=== PATIENT | female | born 1985 | race Caucasian/White ===

== ENCOUNTER 2023-06-07 04:54 | Inpatient (IN) | payer MEDICAID, SELFPAY ==
[2023-06-07] VITALS (83 sets, daily range): BP systolic 110–205; BP diastolic 76–134; PULSE 80–138; RESP 0–45; TEMP 36.3–37.1; O2SAT 90–98
--- NOTE | 2023-06-07 | DI.US_ITS ---
Exam(s) US ABDOMEN EXAM: US ABDOMEN CLINICAL HISTORY: Transaminitis, pancreatitis TECHNIQUE: Ultrasound abdomen performed using standard protocol. COMPARISON: CT CT ABDOMEN PELVIS W from 06/07/2023 FINDINGS: LIVER: Marked attic steatosis. Posterior portions of the liver are not able to be visualized. Enlar ged at 19 cm in length. Coarsened echotexture. No focal liver lesions are seen. GALLBLADDER: No evidence of cholelithiasis. No evidence of wall thickening. No pericholecystic fluid identified. WILSON'S SIGN: Negative. BILIARY SYSTEM: No intrahepatic or extrahepatic biliary ductal dilation. KIDNEYS: Kidneys are symmetric in size. No evidence of renal calculi. No evidence of hydronephrosis. No renal mass or cyst identified. PANCREAS: Normal not well visualized due to bowel gas. SPLEEN: Not enlarged. ABDOMINAL AORTA AND IVC: Visualized portions normal caliber. ASCITES: None seen. IMPRESSION: Enlarged fatty liver. No evidence of cholelithiasis. DATA REPOSITORY:
--- NOTE | 2023-06-07 05:00 | DI.CT_ITS ---
Exam(s) CT ABDOMEN PELVIS W EXAM: CT ABDOMEN PELVIS W CLINICAL HISTORY: pancreatitis. TECHNIQUE: Imaging Protocol: Axial computed tomography images with coronal and sagittal reformatted images were created and reviewed CONTRAST MATERIAL: Intravenous: Omnipaque 350 Contrast volume:100 ml Oral: no COMPARISON: No exams were available for comparison FINDINGS: ABDOMEN and PELVIS: Lung Bases: No acute findings. Liver: Enlarged. Severe hepatic steatosis. No measurable mass. Gallbladder and biliary tract: No radiodense calculus or dilation. Pancreas: Inflammation around the head of the pancreas consistent with pancreatitis. And body and ta il appear normal. No evidence of mass. No pseudocyst. Spleen: Normal. Kidneys: Normal size, contour and axis. No radiodense stones. No obstructive uropathy. No suspicious masses seen. Adrenal glands: No masses seen. Vasculature: Abdominal aorta non-dilated. Soft tissues: Unremarkable. Bladder: No gross wall thickening. No calculi.No focal mass. Bowel: Wall thickening of the descending duodenum adjacent to the head of the pancreas. No obstructi on. Appendix normal. Peritoneal cavity: No ascites. No focal collection or mesenteric inflammatory response. Bones: Unremarkable for age. Congenital fusion between L1 and L2. Reproductive organs: Within normal limits. Lymph nodes: Unremarkable. IMPRESSION:: Findings consistent with acute pancreatitis involving the head of the pancreas with sec ondary inflammation of the adjacent duodenum. Severe hepatic steatosis. RADIATION DOSE DELIVERED: Total DLP DATA REPOSITORY: All CT scans at this facility are submitted to the National Radiology Data Registry (NRDR) Dose Index Registry (DIR) with the [employer] (ACR). RADIATION OPTIMIZATION: All CT scans at this facility use at least one of these dose optimization te chniques: automated exposure control; mA and/or kV adjustment per patient size (includes targeted exa ms where dose is matched to clinical indication); or iterative reconstruction.
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
[2023-06-07] MEDS: diazePAM 10 MG/2 ML SYR 5 MG IVP (05:11)
[2023-06-07] MEDS: Ondansetron 4 MG/2 ML VIAL IVP (05:14)
[2023-06-07] MEDS: Normal Saline 1,000 ML 1000 ML IV ×2 (05:23→06:50)
[2023-06-07 05:24] LABS: Abs Immature Grans 0.06 10^3/uL (0.0-0.06); Absolute Basophil Count 0.06 10^3/uL (0.0-0.2); Absolute Eosinophil Count 0.01 10^3/uL (0.0-0.7); Absolute Lymphocyte Count 1.47 10^3/uL (1.2-3.4); Absolute Monocyte Count 0.61 10^3/uL (0.1-0.8); Absolute Neutrophil Count 8.47 10^3/uL (1.2-6.7); Basophils % 0.6; Eosinophils % 0.1; HCT 43.4 % (36.0-46.0); HGB 14.8 g/dL (11.2-15.7); Immature Grans % 0.6; Lymphocytes % 13.8; MCH 32.2 pg (27.0-33.0); MCHC 34.1 % (32.0-36.0); MCV 94 fL (80-95); MPV 10.3 fL (8.0-11.0); Monocytes % 5.7; Neutrophils % 79.2; Platelet Count 158 10^3/uL (130-400); RDW 13.2 % (11.7-14.6); WBC 10.68 10^3/uL (4.4-10.8)
[2023-06-07 05:38] LABS: Lipase 167 U/L (16-77)
[2023-06-07] MEDS: Ketorolac 15 MG/ML VIAL 10 MG IVP (05:38)
[2023-06-07 05:41] LABS: Bilirubin Moderate (Negative); Blood Large (Negative); Clarity Cloudy (Clear); Glucose Negative (Negative); Ketones >=160 mg/dL (Negative); Leukocyte Esterase Negative (Negative); Nitrite Negative (Negative); Specific Gravity >= 1.030 (1.005-1.025); Urobilinogen 0.2 mg/dL (Up to 0.2)
[2023-06-07 05:41] LABS: ALT 100 U/L (14-59); AST 143 U/L (15-37); Albumin 4.5 g/dL (3.4-5.0); Alkaline Phosphatase 140 U/L (46-116); Anion Gap 27.6 mmol/L (3-11); BUN 10 mg/dL (7-18); Bilirubin, Total 1.1 mg/dL (0.2-1.0); CO2 12.4 mmol/L (21.0-32.0); CREATININE 1.2 mg/dL (0.55-1.02); Calcium 9.8 mg/dL (8.5-10.1); Chloride 92 mmol/L (98-107); Estimated GFR 60.16 (mL/min/1.73m2); Glucose 190 mg/dL (74-106); Magnesium 2.1 mg/dL (1.8-2.4); Potassium 3.3 mmol/L (3.5-5.1); Sodium 132 mmol/L (136-145); Total Protein 10.1 g/dL (6.4-8.2)
[2023-06-07] MEDS: Omnipaque 350 MG/ML 100 ML BTL IJ (05:42)
[2023-06-07] MEDS: Normal Saline - Diluent 50 ML VIAL IJ (05:43)
[2023-06-07] MEDS: Normal Saline Flush 10 ML SYR IVP ×2 (05:43→11:05)
[2023-06-07 05:50] LABS: Bacteria Many HPF (Negative); C & S Indicated? No/Sq. Contamination; Crystals Negative HPF (Negative); Epithelial Cells Many HPF (Negative); Mucus Negative (Negative)
[2023-06-07] MEDS: Droperidol 5 MG/2 ML VIAL IVP (06:08)
[2023-06-07] MEDS: POTASSIUM CHLORIDE/D5-0.9%NACL 1,000 ML 100 MEQ IV (06:26)
--- NOTE | 2023-06-07 07:03 | DI.VRAD_ITS ---
PROCEDURE INFORMATION: Exam: CT Abdomen And Pelvis With Contrast Exam date and time: 06/07/2023 5:53 AM Age: 37 years old Clinical indication: Abdominal pain; Localized; Upper; Patient HX: Abd pain, vomiting, pancreatitis TECHNIQUE: Imaging protocol: Computed tomography of the abdomen and pelvis with contrast. Radiation optimization: All CT scans at this facility use at least one of these dose optimization techniques: automated exposure control; mA and/or kV adjustment per patient size (includes targeted exams where dose is matched to clinical indication); or iterative reconstruction. Contrast material: OMNIPAQUE 350; Contrast volume: 100 ml; Contrast route: INTRAVENOUS (IV); COMPARISON: No relevant prior studies available. FINDINGS: Liver: Severe diffuse hepatic steatosis is present. Gallbladder and bile ducts: No gallbladder wall thickening, radiodense stones, or significant biliary duct dilation. Pancreas: Pancreatic body and tail are grossly unremarkable. There is very mild stranding involving the pancreatic head compatible with groove pancreatitis. No significant pancreatic ductal dilation. There is mild reactive wall thickening of the adjacent duodenal. Spleen: Normal size; no suspicious masses. Adrenal glands: No suspicious adrenal masses. Kidneys and ureters: No hydronephrosis. Stomach and bowel: See Pancreas finding. Appendix: The appendix is normal. Intraperitoneal space: No free intraperitoneal air, significant ascites, or localized fluid collections. Vasculature: Abdominal aorta has normal caliber. Lymph nodes: No enlarged lymph nodes. Urinary bladder: No significant bladder wall thickening. Reproductive: Visualized portions show no obvious acute abnormality. Bones/joints: No acute fracture. Incidental note of fusion across the L1-L2 disc space, possibly congenital. Soft tissues: Unremarkable. IMPRESSION: 1. Acute pancreatitis isolated to pancreatic head. No evidence of pancreatic necrosis or localized fluid collection. 2. Severe hepatic steatosis. Dictated and Authenticated by: Roldan Montes De Oca MD. Ordering:[facility] Rc Hernandez MD
--- NOTE | 2023-06-07 07:37 | ED.PROG_ITS ---
Date of service: 06/07/23 Time of Service: 07:37 Medical Decision Making Discussed patient with the hospitalist for admission. However there are no ICU beds available at this facility and the hospitalist feels the patient requires ICU level care and is requesting that I transfer the patient.. At this time her vitals have improved and she is feeling better. She still has a mild tremor, her vomiting has stopped after the droperidol.. Her CIWA score is 10. Will continue treatment with Valium and IV fluid resuscitation. Will attempt to find placement. Discharge Plan Disposition Patient Disposition: Admit to [facility] Condition: Stable Discharge Details Clinical Impression: Acute pancreatitis, Vomiting, Abdominal pain, Transaminitis, Hyponatremia, Hypokalemia, Alcohol withdrawal ED Provider: Tremayne Tatum Home Meds and New Rx's Prescriptions: No Action lorazepam [Ativan] 1 mg tablet 1 mg PO TID buspirone 10 mg tablet 10 mg PO TID gabapentin 100 mg capsule 100 mg PO DAILY paroxetine HCl [Paxil] 30 mg tablet 60 mg PO HS
[2023-06-07] MEDS: diazePAM 5 MG TAB 10 MG PO (07:38)
--- NOTE | 2023-06-07 07:58 | ED.PROG_ITS ---
Date of service: 06/07/23 Time of Service: 07:58 Medical Decision Making Received signout from night physician Dr. Tatum Patient resting comfortably no acute distress, mild fine tremor, improving vital signs specifically improving hypertension and tachycardia, no longer vomiting. Now tolerating p.o. Was given a dose of p.o. Valium this AM. CIWA score downtrending from initial value around 15 now closer to 10. Given improved hydration, cessation of vomiting, improvement of vital signs, normal mental st atus and declining CIWA patient deemed safe for inpatient admission. Hospitalist uncomfortable admitting to floor, given patient's history of seizure 4 years ago. I have asked hospitalist to come to bedside to evaluate patient as myself and prior physician deemed patient appropriate for admission here. Sign Out Sign Out Data: Sign Out Comment: 37-year-old female with past medical history of alcohol abuse presents for evaluation of vomiting. Patient has pancreatitis and mild alcohol withdrawal. Symptoms are improving with fluids and medication. Final disposition pending admission at this facility versus outside facility. Dr Michel declines admission as there are no ICU beds available. Last updated by Tremayne Tatum MD at 06/07/23 07:41 Discharge Plan Disposition Patient Disposition: Admit to [facility] Condition: Stable Discharge Details Clinical Impression: Acute pancreatitis, Vomiting, Abdominal pain, Transaminitis, Hyponatremia, Hypokalemia, Alcohol withdrawal Primary Care Provider: Ekaterina Beltran ED Provider: Peña Valente Home Meds and New Rx's Prescriptions: No Action lorazepam [Ativan] 1 mg tablet 1 mg PO TID buspirone 10 mg tablet 10 mg PO TID gabapentin 100 mg capsule 100 mg PO DAILY paroxetine HCl [Paxil] 30 mg tablet 60 mg PO HS
[2023-06-07] MEDS: Gabapentin 100 MG CAP PO (09:24)
[2023-06-07] MEDS: busPIRone 5 MG TAB 10 MG PO ×3 (09:24→19:53)
[2023-06-07] MEDS: PHENobarbital 130 MG in Normal Saline 50 ML 100 MG IVPB (09:25)
[2023-06-07] MEDS: POTASSIUM CHLORIDE/0.9% NACL 1,000 ML 200 MEQ IV ×3 (09:54→19:46)
--- NOTE | 2023-06-07 10:02 | W.PCEDHO ---
Registration Status: REG ER Primary Language: Preferred Language: ED Information & Data Chief Complaint Abd Prob 06/07/23 05:01 Triage Note PT states that she has been 06/07/23 04:55 having nausea vomiting and RUQ ABD tenderness Most Recent Vital Signs Temperature 36.3 C L 06/07/23 05:00 Pulse 92 H 06/07/23 06:41 Pulse 93 H 06/07/23 06:50 Respiratory Rate 17 06/07/23 06:50 Respiratory Effort Normal 06/07/23 05:00 Respiratory Pattern Normal 06/07/23 07:39 Blood Pressure 143/84 H 06/07/23 06:41 Blood Pressure Mean 100 06/07/23 06:41 Blood Pressure Position Sitting 06/07/23 05:00 Pulse Oximetry 96 06/07/23 05:00 Oxygen Delivery Method Room Air 06/07/23 05:00 Oxygen Flow Rate 0 06/07/23 04:55 Pain Level 10 06/07/23 05:00 Allergies No Known Allergies Allergy (Unverified 06/07/23 05:29) Active Medications Generic Name Dose Route Start Last Admin Trade Name Freq PRN Reason Stop Dose Admin Iohexol 100 ml 06/07/23 05:45 06/07/23 05:42 Omnipaque 350 Mg/Ml 100 Ml Btl IJ 07/07/23 23:59 100 ml DIRECTED FABY Administration Sodium Chloride 0 ml 06/07/23 04:59 06/07/23 05:43 Normal Saline Flush 10 Ml Syr IVP 10 ml PRN PRN Administration Sodium Chloride 50 ml 06/07/23 05:45 06/07/23 05:43 Normal Saline - Diluent 50 Ml Vial IJ 50 ml .FOR DI USE FABY Administration IV IV Catheter Type [Antecubital] Saline Lock IV Catheter Gauge [Antecubital 18 ] IV Catheter Gauge [Right 20 Antecubital] Diagnostics 06/07/23 06/07/23 Range/Units 05:33 05:10 WBC 10.68 (4.4-10.8) 10^3/uL RBC 4.60 (3.93-5.22) 10^6/uL Hgb 14.8 (11.2-15.7) g/dL Hct 43.4 (36.0-46.0) % MCV 94 (80-95) fL MCH 32.2 (27.0-33.0) pg MCHC 34.1 (32.0-36.0) % RDW 13.2 (11.7-14.6) % Plt Count 158 (130-400) 10^3/uL MPV 10.3 (8.0-11.0) fL Immature Gran % 0.6 Neutrophils % 79.2 Lymphocytes % 13.8 Monocytes % 5.7 Eosinophils % 0.1 Basophils % 0.6 Nucleated RBC % 0.0 (0.0-0.3) % Absolute Neutrophils 8.47 H (1.2-6.7) 10^3/uL Absolute Lymphocytes 1.47 (1.2-3.4) 10^3/uL Absolute Monocytes 0.61 (0.1-0.8) 10^3/uL Absolute Eosinophils 0.01 (0.0-0.7) 10^3/uL Absolute Basophils 0.06 (0.0-0.2) 10^3/uL Sodium 132 L (136-145) mmol/L Potassium 3.3 L (3.5-5.1) mmol/L Chloride 92 L (98-107) mmol/L Carbon Dioxide 12.4 L (21.0-32.0) mmol/L Anion Gap 27.6 H (3-11) mmol/L BUN 10 (7-18) mg/dL Creatinine 1.2 H (0.55-1.02) mg/dL Est GFR (CKD-EPI 2020) 60.16 (mL/min/1.73m2) Glucose 190 H (74-106) mg/dL Calcium 9.8 (8.5-10.1) mg/dL Magnesium 2.1 (1.8-2.4) mg/dL Total Bilirubin 1.1 H (0.2-1.0) mg/dL AST 143 H (15-37) U/L ALT 100 H (14-59) U/L Alkaline Phosphatase 140 H (46-116) U/L Total Protein 10.1 H (6.4-8.2) g/dL Albumin 4.5 (3.4-5.0) g/dL Lipase 167 H (16-77) U/L Urine Color Yellow (Yellow) Urine Clarity Cloudy (Clear) Urine pH 6.0 (5-8) Ur Specific Kemp >= 1.030 H (1.005-1.025) Urine Protein >=300 H (Negative) mg/dL Urine Ketones >=160 H (Negative) mg/dL Urine Blood Large H (Negative) Urine Nitrite Negative (Negative) Urine Bilirubin Moderate H (Negative) Urine Urobilinogen 0.2 (Up to 0.2) mg/dL Ur Leukocyte Esterase Negative (Negative) Urine RBC 10-20 H (0-2) HPF Urine WBC 3-5 (0-5) HPF Ur Epithelial Cells Many (Negative) HPF Urine Crystals Negative (Negative) HPF Urine Bacteria Many (Negative) HPF Urine Mucus Negative (Negative) Ur Culture Indicated? No/Sq. Contamination Urine Glucose Negative (Negative) mg/dL [id number] Documentation POC Urine Test Start: 06/07/23 04:59 Freq: .Urine Test Status: Active Protocol: Activity Type Activity Date Activity User E-sign Co-sign Detail Recorded Client Recorded Date Recorded By Document 06/07/23 05:41 [facility]T [id number] 06/07/23 05:41 [facility] Intake and Output - 24 Hour Total 06/07/23 04:52 thru 06/07/23 07:50 Intake Total 1999 Balance 1999 Weight 65.771 kg Intake: IV 1999 Falls Risk Assessment History of Falls Previous History 06/07/23 05:00 Contributing Factors No Factors 06/07/23 05:00 Ambulatory Aids Independent 06/07/23 05:00 Tubes/Lines None 06/07/23 05:00 Gait Evaluation No gait disturbance 06/07/23 05:00 Cognition No cognitive impairment 06/07/23 05:00 Fall Total Score 15 06/07/23 05:00 Level of Risk Standard/Low Risk 06/07/23 05:00 Problems (Last Reviewed 06/07/23 @ 05:07 by Tremayne Tatum MD) Alcohol withdrawal (Acute) Hypokalemia (Acute) Hyponatremia (Acute) Transaminitis (Acute) Abdominal pain (Acute) Vomiting (Acute) Acute pancreatitis (Acute) v v v v v v v v v Sending and/or Receiving Nurses: Please use comment section below to note any information pertinent to the patient hand-off not included above. Information / Comments: Awake and alert, no S/S of withdrawal, c/o 10/10 abd pain - given morphine 2mg IV Phenobarb given, Thiamine up. KCL running Report received from:Mar[facility] ED
[2023-06-07] MEDS: THIAMINE 100 MG in Normal Saline 100 ML 200 MG IVPB (10:05)
--- NOTE | 2023-06-07 10:21 | W.PM.HP.N ---
Date of service: 06/07/23 Time of Service: 08:00 Assessment and Plan Assessment and plan (1) Acute pancreatitis: Status: Acute Assessment and plan: Suspect acute alcoholic pancreatitis. Treat with aggressive IVF, pain management w/ dilaudid; provide antiemetics. Obtain US abdomen. (2) Alcohol withdrawal: Status: Acute Assessment and plan: With h/o EtOH w/d seizures. Loading with phenobarbital. Will monitor in the ICU until CIWA scores appear stable. Supplement thiamine, MVI. Check B12/folate levels. (3) Metabolic acidosis: Status: Acute Assessment and plan: Suspect starvation/alcoholic ketoacidosis. Check VBG. Provide IVF. Monitor acid/base status with serial chemistries (4) Transaminitis: Status: Acute Assessment and plan: Obtain hepatitis panel, US abdomen. Monitor. (5) Hepatic steatosis: Status: Acute Assessment and plan: Suspect due to EtOH liver disease. Obtain US abdomen and hepatitis panels. (6) Alcohol abuse: Status: Chronic Assessment and plan: As above Provide sobriety resources in the community (7) Tobacco abuse: Status: Chronic Assessment and plan: Counseling. Provide nicotine replacement (8) Hypokalemia: Status: Acute Assessment and plan: Replete; recheck in am (9) DVT prophylaxis: Status: Acute Assessment and plan: SC enoxaparin (10) Discharge planning issues: Status: Acute Assessment and plan: Full code Admit to the ICU History of Present Illness History of Present Illness Chief Complaint: Abdominal pain, nausea and vomiting Narrative: Ms Todd is a 37 year old female with PMHx of prior episodes of pancreatitis, presumably due to EtOH, alcohol abuse with h/o severe EtOH w/d including an alcohol withdrawal seizure after being discharged from the hospital, last drink 48 hrs ago, h/o anxiety d/o, who is currently experiencing homelessness, who presented to [facility] ED with 3 days of RUQ/epigastric abdominal pain accompanied by nausea/vomiting (billious with occasional brown streaks) and some diarrhea. Due to this, the patient has not been able to keep down any food or liquids, including alcohol. She usually drinks 6 12 oz 8% beers daily. She is currently residing in the [facility] with her partner. In the ED, her CIWA score was 16. This was treated with IV valium with the score going down to 8. The workup in the ED is c/w acute pancreatitis and severe hepatic steatosis. Hospitalist admission was requested. The patient is being admitted to the ICU. Review of Systems All systems reviewed & are unremarkable except as noted in HPI and below PFSH All Active Problems (Updated 06/07/23 @ 10:51 by Kayla Michel MD) Discharge planning issues (Acute) DVT prophylaxis (Acute) Metabolic acidosis (Acute) Hepatic steatosis (Acute) Tobacco abuse (Chronic) Anxiety disorder (Acute) Alcohol abuse (Chronic) Homelessness (Acute) Alcohol withdrawal (Acute) Hypokalemia (Acute) Hyponatremia (Acute) Transaminitis (Acute) Abdominal pain (Acute) Vomiting (Acute) Acute pancreatitis (Acute) Medical History (Updated 06/07/23 @ 10:51 by Kalya Michel MD) Alcohol withdrawal seizure Surgical History (Updated 06/07/23 @ 14:50 by Kayla Michel MD) History of surgery on arm LUE ORIF Family History (Updated 06/07/23 @ 14:51 by Kayla Michel MD) Mother Breast cancer Maternal Grandfather Colon cancer Other Hypertension Social History Smoking/Tobacco Use Status: Current every day Tobacco Type: e-cigarettes Smoking risk assessment performed?: Yes Alcohol Intake: current Alcohol Intake frequency: 3 or more drinks per day Drug use: Never Substance use type: marijuana Housing: other Do you feel safe at home: Yes Do you feel safe in your relationship?: Yes Meds Allergies and Home Medications Allergies Allergy/AdvReac Type Severity Reaction Status Date / Time No Known Allergies Allergy Unverified 06/07/23 05:29 Home Medications Medication Instructions Recorded Confirmed Type buspirone 10 mg tablet 10 mg PO TID 06/07/23 06/07/23 History gabapentin 100 mg capsule 100 mg PO DAILY 06/07/23 06/07/23 History lorazepam 1 mg tablet (Ativan) 1 mg PO TID 06/07/23 06/07/23 History paroxetine HCl 30 mg tablet (Paxil) 60 mg PO HS 06/07/23 06/07/23 History Exam Narrative Exam Narrative: General: A very pleasant anxious appearing female who is mildly tremulous, A&Ox3, appears uncomfortable, holding on to her epigastrium Neurological: A&Ox3, mildly tremulous, no focal deficits Psychiatric: Mildly anxious, appropriate speech pattern/affect Skin: Visible skin intact HEENT: Atraumatic, normocephalic, EOMI, dry MM, clear oropharynx, no submandibular or cervical lymphadenopathy, no goiter or JVD Cardiovascular: RRR, tachycardic, no m/r/g Lungs: CTAB (diminished at B bases) Gastrointestinal: soft, tender in epigastrium (especially RUQ), nondistended Genitourinary: deferred Extremities: no edema, 2+ pedal pulses B Results Imaging Additional studies: CT abdomen/pelvis: Findings consistent with acute pancreatitis involving the head of the pancreas with secondary inflammation of the adjacent duodenum. Severe hepatic steatosis. Labs 06/07/23 05:10 06/07/23 05:10 Labs: Laboratory Results - last 24 hr 06/07/23 06/07/23 05:10 05:33 WBC 10.68 RBC 4.60 Hgb 14.8 Hct 43.4 MCV 94 MCH 32.2 MCHC 34.1 RDW 13.2 Plt Count 158 MPV 10.3 Immature Gran % 0.6 Neutrophils % 79.2 Lymphocytes % 13.8 Monocytes % 5.7 Eosinophils % 0.1 Basophils % 0.6 Nucleated RBC % 0.0 Absolute Neutrophils 8.47 H Absolute Lymphocytes 1.47 Absolute Monocytes 0.61 Absolute Eosinophils 0.01 Absolute Basophils 0.06 Sodium 132 L Potassium 3.3 L Chloride 92 L Carbon Dioxide 12.4 L Anion Gap 27.6 H BUN 10 Creatinine 1.2 H Est GFR (CKD-EPI 2020) 60.16 Glucose 190 H Calcium 9.8 Magnesium 2.1 Total Bilirubin 1.1 H AST 143 H ALT 100 H Alkaline Phosphatase 140 H Total Protein 10.1 H Albumin 4.5 Lipase 167 H Urine Color Yellow Urine Clarity Cloudy Urine pH 6.0 Ur Specific [place] >= 1.030 H Urine Protein >=300 H Urine Ketones >=160 H Urine Blood Large H Urine Nitrite Negative Urine Bilirubin Moderate H Urine Urobilinogen 0.2 Ur Leukocyte Esterase Negative Urine RBC 10-20 H Urine WBC 3-5 Ur Epithelial Cells Many Urine Crystals Negative Urine Bacteria Many Urine Mucus Negative Ur Culture Indicated? No/Sq. Contamination Urine Glucose Negative Last Vital Signs Temp 36.3 C L 06/07/23 05:00 Pulse 92 H 06/07/23 06:41 Resp 17 06/07/23 06:50 BP 143/84 H 06/07/23 06:41 Pulse Ox 96 06/07/23 05:00 PAWSS Have you Been Recently Intoxicated or Drunk Within the Last 30 days?: No Have you Ever Experienced Previous Episodes of Alcohol Withdrawal?: Yes Have you ever Experienced Withdrawal Seizures?: Yes Have you ever Experienced Delirium Tremens(DT)s?: Yes Have you ever undergone Alcohol Rehabilitation Treatment (i.e, inpt ot outpatient treatment programs)?: Yes Have you ever Experienced Blackouts?: Yes Have you ever Combined Alcohol with other Downers within the last 90 days?: Yes Have you ever Combined Alcohol with any other Substance of Abuse during the last 90 days?: Yes Positive Blood Alcohol level on Presentation? [PCS.BAL]: Unable to Obtain Evidence of Increased Autonomic Activity (i.e. HR>120, tremor, sweating, agitation, nausea)?: Yes Result: 8 Time Spent Time spent with Patient: 40-54 minutes Time was spent: preparing to see the patient(eg.review tests), obtaining and/or reviewing separately otained hiistory, ordering medications,tests, procedures, referring, communicating with other health nursing care partner, indepentently interpreting results, counseling the patient and care coordination
[2023-06-07] MEDS: Pantoprazole 40 MG VIAL IVP (11:03)
[2023-06-07] MEDS: Enoxaparin 40 MG/0.4 ML SYR SC (11:04)
[2023-06-07 11:10] LABS: BE (Venous) -10 mmol/L (-2-3); HCO3 (Venous) 17 mmol/L (23-28); O2 Sat (Venous) 69 %; TCO2 (Venous) 15 mmol/L (24-29); pCO2 (Venous) 33 mmHg (41-51); pH (Venous) 7.31 (7.31-7.41); pO2 (Venous) 38 mmHg
--- NOTE | 2023-06-07 12:32 | PHA.REVIEW2 ---
Pharmacy Admission Review Admission Clinical Review Admission Pharmacy Review: (Updated 06/07/23 @ 10:51 by Kayla Michel MD) Discharge planning issues (Acute) DVT prophylaxis (Acute) Metabolic acidosis (Acute) Hepatic steatosis (Acute) Alcohol withdrawal (Acute) Hypokalemia (Acute) Hyponatremia (Acute) Transaminitis (Acute) Abdominal pain (Acute) Vomiting (Acute) Acute pancreatitis (Acute) No Known Allergies Allergy (Unverified 06/07/23 05:29) Resuscitation Status Full Code Height 5 ft 3 in Weight 79 kg Comments Comments/Follow Ups: Has phenobarbital order for alcohol withdrawal. Monitor dosing and watch for repeat labs for electrolytes. Pharmacy Admission Review Renal Dosing Renal Dosing: BUN 10 mg/dL (7-18) 06/07/23 05:10 Creatinine 1.2 mg/dL (0.55-1.02) H 06/07/23 05:10 Medications needing adjustments: Reviewed (CrCl 64.43 mL/min) Anticoagulation Anticoagulation: Hgb 14.8 g/dL (11.2-15.7) 06/07/23 05:10 Hct 43.4 % (36.0-46.0) 06/07/23 05:10 Plt Count 158 10^3/uL (130-400) 06/07/23 05:10 Creatinine 1.2 mg/dL (0.55-1.02) H 06/07/23 05:10 DVT Prophylaxis: Reviewed Medications: Enoxaparin (40mg q24h) Opiate Usage Evaluate Pain Scale/Pains Meds: Reviewed (PRN morphine) Scheduled Bowel Reg ordered if on Opiates?: No (PRN docusate and Miralax) Relevant Labs Relevant Labs: Sodium 132 mmol/L (136-145) L 06/07/23 05:10 Potassium 3.3 mmol/L (3.5-5.1) L 06/07/23 05:10 Chloride 92 mmol/L (98-107) L 06/07/23 05:10 Magnesium 2.1 mg/dL (1.8-2.4) 06/07/23 05:10 Electrolytes, C-Reactive P, ESR: Reviewed (Repeat labs pending, was given KCl infusion. ) Cardiac Review BP, HR, EF%: Reviewed (BP 140/93 has been improving was 205/127 at admission, HR 95) QTc Review QTc: Not Reviewed (Does not have an EKG on file) IV to PO Switch IV Medications: Reviewed Home Meds Home Med List reviewed: Reviewed Relevent Home Meds Not ordered & why?: Paroxetine 60mg HS verified with patient. Current Meds Current Medication Order Review: Reviewed Comments Comments/Follow Ups: Has phenobarbital order for alcohol withdrawal. Monitor dosing and watch for repeat labs for electrolytes.
[2023-06-07 14:14] LABS: *AMPHETAMINES SCREEN URINE Negative (Negative); *BARBITURATES SCREEN URINE Negative (Negative); *BENZODIAZEPINES SCREEN URINE Positive (Negative); Cannabinoids THC Positive (Negative); Cocaine Screen,Urine Negative (Negative); METHADONE URINE SCREEN Negative (Negative); OPIATES URINE SCREEN Positive (Negative)
[2023-06-07 14:15] LABS: Tricyclic Antidepressants Negative (Negative)
[2023-06-07 16:10] LABS: BE (Venous) -9 mmol/L (-2-3); HCO3 (Venous) 17 mmol/L (23-28); O2 Sat (Venous) 93 %; TCO2 (Venous) 16 mmol/L (24-29); pCO2 (Venous) 34 mmHg (41-51); pH (Venous) 7.32 (7.31-7.41); pO2 (Venous) 65 mmHg
[2023-06-07] MEDS: HYDROmorphone 2 MG/ML SYR 1 MG IVP ×3 (16:12→22:20)
[2023-06-07 16:25] LABS: Anion Gap 12.9 mmol/L (3-11); BUN 4 mg/dL (7-18); CO2 18.1 mmol/L (21.0-32.0); CREATININE 0.7 mg/dL (0.55-1.02); Calcium 7.9 mg/dL (8.5-10.1); Chloride 104 mmol/L (98-107); Estimated GFR 114.88 (mL/min/1.73m2); Glucose 97 mg/dL (74-106); Potassium 3.8 mmol/L (3.5-5.1); Sodium 135 mmol/L (136-145)
[2023-06-07] MEDS: PARoxetine 20 MG TAB 60 MG PO (20:07)
[2023-06-07] MEDS: PHENobarbital 130 MG/ML VIAL IVP (22:20)
[2023-06-08] VITALS (36 sets, daily range): BP systolic 107–157; BP diastolic 80–111; PULSE 90–116; RESP 5–27; TEMP 36.8–37.8; O2SAT 88–98
--- NOTE | 2023-06-08 | DI.RAD_ITS ---
Exam(s) XR PORTABLE CHEST AP EXAM: XR PORTABLE CHEST AP CLINICAL HISTORY: Hypoxia, vomiting at home. TECHNIQUE: 2D digital imaging was performed. COMPARISON: CT CT ABDOMEN PELVIS W from 06/07/2023 FINDINGS: Single AP portable view. Heart size is upper normal. The mediastinum is not widened. Lungs are clear. No infiltrates nor obvious pleural effusions. There is no free air subjacent to the hemidiaphragms, given the findings on yesterday's CT scan. IMPRESSION: No acute pulmonary findings on this single AP portable view of the chest. DATA REPOSITORY: RADIATION DOSE DELIVERED:
[2023-06-08] MEDS: Normal Saline Flush 10 ML SYR IVP ×5 (00:19→23:57)
[2023-06-08] MEDS: HYDROmorphone 2 MG/ML SYR 1 MG IVP ×10 (00:19→23:56)
[2023-06-08] MEDS: POTASSIUM CHLORIDE/0.9% NACL 1,000 ML 200 MEQ IV ×3 (00:24→10:45)
[2023-06-08] MEDS: PHENobarbital 130 MG/ML VIAL IVP ×4 (02:35→11:41)
[2023-06-08 07:07] LABS: Abs Immature Grans 0.04 10^3/uL (0.0-0.06); Absolute Basophil Count 0.06 10^3/uL (0.0-0.2); Absolute Eosinophil Count 0.11 10^3/uL (0.0-0.7); Absolute Lymphocyte Count 1.55 10^3/uL (1.2-3.4); Absolute Monocyte Count 0.46 10^3/uL (0.1-0.8); Absolute Neutrophil Count 3.79 10^3/uL (1.2-6.7); Eosinophils % 1.8; HGB 11.6 g/dL (11.2-15.7); Immature Grans % 0.7; Lymphocytes % 25.8; MCH 31.7 pg (27.0-33.0); MCHC 32.2 % (32.0-36.0); MCV 98 fL (80-95); MPV 10.2 fL (8.0-11.0); Monocytes % 7.7; Platelet Count 114 10^3/uL (130-400); RBC 3.66 10^6/uL (3.93-5.22); RDW 13.6 % (11.7-14.6); WBC 6.01 10^3/uL (4.4-10.8)
[2023-06-08] MEDS: busPIRone 5 MG TAB 10 MG PO ×3 (07:34→20:09)
[2023-06-08 07:56] LABS: Anion Gap 9.1 mmol/L (3-11); BUN 2 mg/dL (7-18); CO2 22.9 mmol/L (21.0-32.0); CREATININE 0.6 mg/dL (0.55-1.02); Calcium 7.8 mg/dL (8.5-10.1); Chloride 106 mmol/L (98-107); Estimated GFR 119.23 (mL/min/1.73m2); Folate 18.4 ng/mL (8.6-20.0); Glucose 82 mg/dL (74-106); Magnesium 1.5 mg/dL (1.8-2.4); Potassium 4.4 mmol/L (3.5-5.1); Sodium 138 mmol/L (136-145); Vitamin B12 1873 pg/mL (193-986)
[2023-06-08] MEDS: Gabapentin 100 MG CAP PO (07:57)
[2023-06-08] MEDS: Thiamine 100 MG TAB PO (07:57)
[2023-06-08] MEDS: Folic Acid 1 MG TAB PO (07:57)
[2023-06-08] MEDS: Multivitamin TAB 1 TAB PO (07:57)
[2023-06-08] MEDS: Pantoprazole 40 MG VIAL IVP (09:24)
[2023-06-08] MEDS: MAGNESIUM SULFATE 4 GM/100 ML BAG IVPB (09:25)
[2023-06-08] MEDS: Enoxaparin 40 MG/0.4 ML SYR SC (09:25)
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
--- NOTE | 2023-06-08 10:46 | PGE_ITS ---
Date of Service Date of service: 06/08/23 Time of Service: 10:46 Assessment and Plan Assessment and plan (1) Acute pancreatitis: Status: Acute Assessment and plan: Acute alcoholic pancreatitis. Decrease rate of IVF, pain management w/ dilaudid+ toradol; continue prn antiemetics. US abdomen with fatty liver. (2) Alcohol withdrawal: Status: Acute Assessment and plan: With h/o EtOH w/d seizures. S/p phenobarbital load. Continues to withdraw with CIWA scores of 12 and 16 so far today. Continue monitoring in the ICU. Supplement thiamine, MVI. B12 and folate are adequate. (3) Metabolic acidosis: Status: Resolved Assessment and plan: Suspect starvation/alcoholic ketoacidosis. Resolved with IV hydration. Monitor acid/base status with serial chemistries (4) Hypoxia: Status: Acute Assessment and plan: Suspect this is due to atelectasis. Could also have aspirated. Obtain a CXR. Encourage IS/acapella. (5) Transaminitis: Status: Acute Assessment and plan: US abdomen w/ fatty liver. Hepatitis panel pending. Monitor. (6) Hepatic steatosis: Status: Acute Assessment and plan: Suspect due to EtOH liver disease. As above (7) Alcohol abuse: Status: Chronic Assessment and plan: As above Provide sobriety resources in the community (8) Tobacco abuse: Status: Chronic Assessment and plan: Counseling. Provide nicotine replacement (9) Hypokalemia: Status: Acute Assessment and plan: Replete; recheck in am (10) DVT prophylaxis: Status: Acute Assessment and plan: SC enoxaparin (11) Hypomagnesemia: Status: Acute Assessment and plan: Replete (12) Discharge planning issues: Status: Acute Assessment and plan: Full code Keep in the ICU. Total Critical Care Time 45 minutes. Subjective Subjective Interval history since last seen: Reports lightheadedness, nausea, tremors this morning. She started her period and blames her suprapubic discomfort on that. Epigastric pain remains severe. It hurts to take a deep breath. Nursing has noted that the patient does desaturate to high 80s-low 90s, but this improved with deep breathing. Exam Narrative Exam Narrative: General: A very pleasant anxious appearing female who is tremulous, A&Ox3, appears uncomfortable, looks worse than yesterday HEENT: EOMI, MMM, pinpoint pupils Cardiovascular: RRR, tachycardic, no m/r/g Lungs: Diminished breath sounds at B bases Gastrointestinal: soft, tender in epigastriumnondistended Extremities: no edema BLEs Objective Last Vital Signs Temp 37.8 C H 06/08/23 09:17 Pulse 97 H 06/08/23 09:17 Resp 14 06/08/23 09:17 BP 112/92 H 06/08/23 09:17 Pulse Ox 92 06/08/23 09:17 Laboratory Results - last 24 hr 06/07/23 06/07/23 06/07/23 11:05 13:45 15:55 WBC RBC Hgb Hct MCV MCH MCHC RDW Plt Count MPV Immature Gran % Neutrophils % Lymphocytes % Monocytes % Eosinophils % Basophils % Nucleated RBC % Absolute Neutrophils Absolute Lymphocytes Absolute Monocytes Absolute Eosinophils Absolute Basophils VBG pH 7.31 7.32 VBG pCO2 33 L 34 L VBG pO2 38 65 VBG HCO3 17 L 17 L VBG Total CO2 15 L 16 L VBG O2 Saturation 69 93 VBG Base Excess -10 L -9 L Sodium 135 L Potassium 3.8 Chloride 104 Carbon Dioxide 18.1 L Anion Gap 12.9 H BUN 4 L Creatinine 0.7 Est GFR (CKD-EPI 2020) 114.88 Glucose 97 Calcium 7.9 L Magnesium Vitamin B12 Folate Urine Opiates Screen Positive A Urine Methadone Screen Negative Ur Barbiturates Screen Negative Ur Tricyclics Screen Negative Ur Amphetamines Screen Negative U Benzodiazepines Scrn Positive A Urine Cocaine Screen Negative Ur THC Screen Positive A Hep Bs Antigen Hep Bs Antibody Hep Bs Antibody, Quant 06/08/23 06:25 WBC 6.01 RBC 3.66 L Hgb 11.6 D Hct 36.0 MCV 98 H D MCH 31.7 MCHC 32.2 RDW 13.6 Plt Count 114 L MPV 10.2 Immature Gran % 0.7 Neutrophils % 63.0 Lymphocytes % 25.8 Monocytes % 7.7 Eosinophils % 1.8 Basophils % 1.0 Nucleated RBC % 0.0 Absolute Neutrophils 3.79 Absolute Lymphocytes 1.55 Absolute Monocytes 0.46 Absolute Eosinophils 0.11 Absolute Basophils 0.06 VBG pH VBG pCO2 VBG pO2 VBG HCO3 VBG Total CO2 VBG O2 Saturation VBG Base Excess Sodium 138 Potassium 4.4 Chloride 106 Carbon Dioxide 22.9 Anion Gap 9.1 BUN 2 L Creatinine 0.6 Est GFR (CKD-EPI 2020) 119.23 Glucose 82 Calcium 7.8 L Magnesium 1.5 L Vitamin B12 1873 H Folate 18.4 Urine Opiates Screen Urine Methadone Screen Ur Barbiturates Screen Ur Tricyclics Screen Ur Amphetamines Screen U Benzodiazepines Scrn Urine Cocaine Screen Ur THC Screen Hep Bs Antigen Cancelled Hep Bs Antibody Cancelled Hep Bs Antibody, Quant Cancelled Objective Narrative Objective Narrative: US abdomen: Enlarged fatty liver. No evidence of cholelithiasis. PAWSS Have you Been Recently Intoxicated or Drunk Within the Last 30 days?: No Have you Ever Experienced Previous Episodes of Alcohol Withdrawal?: Yes Have you ever Experienced Withdrawal Seizures?: Yes Have you ever Experienced Delirium Tremens(DT)s?: No Have you ever undergone Alcohol Rehabilitation Treatment (i.e, inpt ot outpatient treatment programs)?: Yes Have you ever Experienced Blackouts?: No Have you ever Combined Alcohol with other Downers within the last 90 days?: No Have you ever Combined Alcohol with any other Substance of Abuse during the last 90 days?: No Positive Blood Alcohol level on Presentation? [PCS.BAL]: No Evidence of Increased Autonomic Activity (i.e. HR>120, tremor, sweating, agitation, nausea)?: Yes Result: 4 Time Spent with Patient Time Spent with Patient: 35-49 minutes Time was spent: preparing to see the patient(eg.review tests), obtaining and/or reviewing separately otained hiistory, ordering medications,tests, procedures, referring, communicating with other health acute care nursing assistant, indepentently interpreting results, counseling the patient and care coordination
[2023-06-08] MEDS: Sucralfate 1 GM TAB PO ×3 (11:34→21:08)
[2023-06-08] MEDS: LORazepam 0.5 MG TAB PO ×2 (15:11→20:14)
[2023-06-08 15:39] LABS: PHENOBARBITAL 17.9 ug/mL (15.0-40.0)
[2023-06-08] MEDS: Normal Saline Flush 10 ML SYR IV (20:08)
[2023-06-08] MEDS: PARoxetine 20 MG TAB 60 MG PO (20:09)
[2023-06-08] MEDS: Docusate Sodium 100 MG CAP PO (20:09)
[2023-06-08] MEDS: Magnesium Oxide 400 MG TAB PO (20:09)
[2023-06-08 20:28] LABS: HBs Antibody, Quant >1000.0 mIU/mL (See Note); Hepatitis B Surface Ab Positive (See Note)
[2023-06-09] VITALS (14 sets, daily range): BP systolic 121–162; BP diastolic 77–108; PULSE 81–105; RESP 13–27; TEMP 36.8–37.6; O2SAT 92–98
[2023-06-09] MEDS: HYDROmorphone 2 MG/ML SYR 1 MG IVP ×7 (03:52→21:43)
[2023-06-09] MEDS: POTASSIUM CHLORIDE/0.9% NACL 1,000 ML 125 MEQ IV (05:47)
[2023-06-09 05:59] LABS: Abs Immature Grans 0.03 10^3/uL (0.0-0.06); Absolute Basophil Count 0.06 10^3/uL (0.0-0.2); Absolute Eosinophil Count 0.18 10^3/uL (0.0-0.7); Absolute Lymphocyte Count 1.62 10^3/uL (1.2-3.4); Absolute Monocyte Count 0.45 10^3/uL (0.1-0.8); Absolute Neutrophil Count 2.57 10^3/uL (1.2-6.7); Basophils % 1.2; Eosinophils % 3.7; HCT 33.7 % (36.0-46.0); HGB 11.1 g/dL (11.2-15.7); Immature Grans % 0.6; MCHC 32.9 % (32.0-36.0); MCV 97 fL (80-95); MPV 10.5 fL (8.0-11.0); Monocytes % 9.2; Neutrophils % 52.3; Platelet Count 109 10^3/uL (130-400); RBC 3.47 10^6/uL (3.93-5.22); RDW 13.3 % (11.7-14.6); RDW-SD 47.7 fL; WBC 4.91 10^3/uL (4.4-10.8)
[2023-06-09 06:18] LABS: Anion Gap 11.3 mmol/L (3-11); BUN 1 mg/dL (7-18); C-Reactive Protein 3.03 mg/dL (0.0-0.3); CO2 22.7 mmol/L (21.0-32.0); CREATININE 0.5 mg/dL (0.55-1.02); Calcium 7.9 mg/dL (8.5-10.1); Chloride 104 mmol/L (98-107); Estimated GFR 123.81 (mL/min/1.73m2); Glucose 74 mg/dL (74-106); Magnesium 2.1 mg/dL (1.8-2.4); Potassium 4.2 mmol/L (3.5-5.1); Sodium 138 mmol/L (136-145)
[2023-06-09] MEDS: Normal Saline Flush 10 ML SYR IV ×2 (08:35→18:23)
[2023-06-09] MEDS: Thiamine 100 MG TAB PO (08:43)
[2023-06-09] MEDS: Sucralfate 1 GM TAB PO ×4 (08:43→21:43)
[2023-06-09] MEDS: Magnesium Oxide 400 MG TAB PO ×2 (08:43→19:51)
[2023-06-09] MEDS: busPIRone 5 MG TAB 10 MG PO ×3 (08:43→19:51)
[2023-06-09] MEDS: Folic Acid 1 MG TAB PO (08:43)
[2023-06-09] MEDS: Multivitamin TAB 1 TAB PO (08:44)
[2023-06-09] MEDS: Docusate Sodium 100 MG CAP PO ×2 (08:44→19:51)
[2023-06-09] MEDS: Gabapentin 100 MG CAP PO (08:44)
[2023-06-09] MEDS: PHENobarbital 130 MG/ML VIAL IVP ×3 (08:55→18:23)
--- NOTE | 2023-06-09 09:24 | PGE_ITS ---
Date of Service Date of service: 06/09/23 Time of Service: 09:24 Assessment and Plan Assessment and plan (1) Acute pancreatitis: Status: Acute Assessment and plan: Acute alcoholic pancreatitis. Improving. D/c IVF. Continue pain management w/ dilaudid+ toradol; continue prn antiemetics. US abdomen with fatty liver. (2) Alcohol withdrawal: Status: Acute Assessment and plan: With h/o EtOH w/d seizures. S/p phenobarbital load. Continues to withdraw with CIWA score of 12 this am. Received an additional dose of phenobarb this morning because her level permitted this, even though she now met the hard stop. Continue monitoring in the ICU. Supplement thiamine, MVI. B12 and folate are adequate. (3) Metabolic acidosis: Status: Resolved Assessment and plan: Suspect starvation/alcoholic ketoacidosis. Resolved with IV hydration. Monitor acid/base status with serial chemistries (4) Hypoxia: Status: Resolved Assessment and plan: Suspect this is due to atelectasis. CXR negative. Encourage IS/acapella. (5) Transaminitis: Status: Acute Assessment and plan: US abdomen w/ fatty liver. Hepatitis panel shows Hep Bs positivity, Core Ab pending. Will follow up. Monitor. (6) Hepatic steatosis: Status: Acute Assessment and plan: Suspect due to EtOH liver disease. As above (7) Alcohol abuse: Status: Chronic Assessment and plan: As above Provide sobriety resources in the community (8) Tobacco abuse: Status: Chronic Assessment and plan: Counseling. Provide nicotine replacement (9) Hypokalemia: Status: Resolved Assessment and plan: Recheck in am (10) DVT prophylaxis: Status: Acute Assessment and plan: SC enoxaparin (11) Hypomagnesemia: Status: Acute Assessment and plan: Replete (12) Discharge planning issues: Status: Acute Assessment and plan: Full code Transfer out of the ICU later today if CIWA scores improve and stay low. Subjective Subjective Interval history since last seen: Feeling better. Still having epigastric pain, but it's episodic rather than constant, which is an improvement. She has a senation of muscle spasms and abdominal tightness. Denies dizziness, CP, SOB, n/v. Tolerating clears. Less tremulous. Anxious. Not hallucinating. Last CIWA was 12. Reached hard stop on phenobarb, but level was 17,so got another dose this morning. Exam Narrative Exam Narrative: General: A very pleasant anxious appearing female who is less luzmaria mulous, A&Ox3, looks better, less tremulous HEENT: EOMI, MMM Cardiovascular: RRR, no m/r/g Lungs: CTAB Gastrointestinal: soft, tender in epigastrium, nondistended Extremities: no edema BLEs Objective Last Vital Signs Temp 36.8 C 06/09/23 08:36 Pulse 99 H 06/09/23 08:36 Resp 22 06/09/23 08:36 BP 148/108 H 06/09/23 08:36 Pulse Ox 95 06/09/23 08:36 Laboratory Results - last 24 hr 06/08/23 06/08/23 06/09/23 06:25 15:15 05:42 WBC 4.91 RBC 3.47 L Hgb 11.1 L Hct 33.7 L MCV 97 H MCH 32.0 MCHC 32.9 RDW 13.3 Plt Count 109 L MPV 10.5 Immature Gran % 0.6 Neutrophils % 52.3 Lymphocytes % 33.0 Monocytes % 9.2 Eosinophils % 3.7 Basophils % 1.2 Nucleated RBC % 0.0 Absolute Neutrophils 2.57 Absolute Lymphocytes 1.62 Absolute Monocytes 0.45 Absolute Eosinophils 0.18 Absolute Basophils 0.06 Sodium 138 Potassium 4.2 Chloride 104 Carbon Dioxide 22.7 Anion Gap 11.3 H BUN 1 L Creatinine 0.5 L Est GFR (CKD-EPI 2020) 123.81 Glucose 74 Calcium 7.9 L Magnesium 2.1 C-Reactive Protein 3.03 H Phenobarbital 17.9 Hep Bs Antibody Positive Hep Bs Antibody, Quant >1000.0 PAWSS Have you Been Recently Intoxicated or Drunk Within the Last 30 days?: No Have you Ever Experienced Previous Episodes of Alcohol Withdrawal?: Yes Have you ever Experienced Withdrawal Seizures?: Yes Have you ever Experienced Delirium Tremens(DT)s?: No Have you ever undergone Alcohol Rehabilitation Treatment (i.e, inpt ot outpatient treatment programs)?: Yes Have you ever Experienced Blackouts?: No Have you ever Combined Alcohol with other Downers within the last 90 days?: No Have you ever Combined Alcohol with any other Substance of Abuse during the last 90 days?: No Positive Blood Alcohol level on Presentation? [PCS.BAL]: No Evidence of Increased Autonomic Activity (i.e. HR>120, tremor, sweating, agitation, nausea)?: Yes Result: 4 Time Spent with Patient Time Spent with Patient: 35-49 minutes Time was spent: preparing to see the patient(eg.review tests), obtaining and/or reviewing separately otained hiistory, ordering medications,tests, procedures, referring, communicating with other health housekeeper child care, indepentently interpreting results, counseling the patient and care coordination
[2023-06-09] MEDS: Enoxaparin 40 MG/0.4 ML SYR SC (10:16)
[2023-06-09] MEDS: Pantoprazole 40 MG VIAL IVP (10:16)
--- NOTE | 2023-06-09 10:31 | CMPROGNOTE_ITS ---
Date of service: 06/09/23 Time of Service: 10:31 Care Management Progress Note Progress Note Text Progress Note Text: S/O: Alva was resting when CM attempted to meet with her. Per RN, she is doing well today, although she continues to require IV dilaudid Q2H, and has had two doses of phenobarb today. Per MD, she is improving, and may be ready to transition to M/S later today or tomorrow. CM will continue to follow. A: Alva ia a 38 year old female admitted to [facility] on 06/07/23 for acute pancreatitis, ETOH w/d P: Anticipate Alva will return home with no new services. She will be driven home via private vehicle by family vs [facility]. She will follow up with her PCP and discharge plan of care. CM will continue to follow.
[2023-06-09 12:08] LABS: Hepatitis A Antibody IgM Negative (Negative); Hepatitis B Core Antibody Negative (Negative); Hepatitis B surface Ag Negative (Negative); Hepatitis C Ab w Rflx HCV PCR Negative (Negative)
[2023-06-09] MEDS: LORazepam 0.5 MG TAB PO ×2 (14:54→22:43)
[2023-06-09 15:14] LABS: PHENOBARBITAL 23.9 ug/mL (15.0-40.0)
[2023-06-09] MEDS: Ketorolac 15 MG/ML VIAL IVP ×2 (15:43→21:44)
[2023-06-09] MEDS: Normal Saline Flush 10 ML SYR IVP ×2 (15:44→18:23)
[2023-06-09] MEDS: Acetaminophen 325 MG TAB PO ×2 (18:33→22:43)
[2023-06-09] MEDS: PARoxetine 20 MG TAB 60 MG PO (19:51)
[2023-06-10 00:25] VITALS: PULSE 95
[2023-06-10] MEDS: HYDROmorphone 2 MG/ML SYR 1 MG IVP ×2 (04:30→08:16)
[2023-06-10] MEDS: Acetaminophen 325 MG TAB PO ×2 (04:30→20:13)
[2023-06-10] MEDS: Ketorolac 15 MG/ML VIAL IVP ×3 (04:31→18:17)
[2023-06-10 06:47] LABS: Abs Immature Grans 0.01 10^3/uL (0.0-0.06); Absolute Basophil Count 0.06 10^3/uL (0.0-0.2); Absolute Eosinophil Count 0.14 10^3/uL (0.0-0.7); Absolute Lymphocyte Count 1.18 10^3/uL (1.2-3.4); Absolute Neutrophil Count 1.41 10^3/uL (1.2-6.7); Basophils % 1.9; Eosinophils % 4.4; HCT 35.2 % (36.0-46.0); HGB 11.6 g/dL (11.2-15.7); Immature Grans % 0.3; Lymphocytes % 36.9; MCH 31.2 pg (27.0-33.0); MCV 95 fL (80-95); MPV 10.5 fL (8.0-11.0); Monocytes % 12.5; Platelet Count 129 10^3/uL (130-400); RBC 3.72 10^6/uL (3.93-5.22); RDW 12.9 % (11.7-14.6); RDW-SD 45.1 fL
[2023-06-10 07:03] LABS: Anion Gap 8.7 mmol/L (3-11); BUN 1 mg/dL (7-18); CO2 27.3 mmol/L (21.0-32.0); CREATININE 0.5 mg/dL (0.55-1.02); Calcium 8.4 mg/dL (8.5-10.1); Chloride 103 mmol/L (98-107); Estimated GFR 123.81 (mL/min/1.73m2); Glucose 95 mg/dL (74-106); Magnesium 2.1 mg/dL (1.8-2.4); Sodium 139 mmol/L (136-145)
[2023-06-10 07:04] LABS: Potassium 3.1 mmol/L (3.5-5.1)
[2023-06-10 07:22] VITALS: BP 136/95; PULSE 84; RESP 18; TEMP 36; O2SAT 98
[2023-06-10] MEDS: Sucralfate 1 GM TAB PO ×4 (07:30→21:36)
[2023-06-10] MEDS: Normal Saline Flush 10 ML SYR IV ×2 (08:17→20:15)
[2023-06-10] MEDS: Thiamine 100 MG TAB PO (08:17)
[2023-06-10] MEDS: Magnesium Oxide 400 MG TAB PO ×2 (08:18→20:14)
[2023-06-10] MEDS: busPIRone 5 MG TAB 10 MG PO ×3 (08:18→20:13)
[2023-06-10] MEDS: Gabapentin 100 MG CAP PO (08:18)
[2023-06-10] MEDS: Potassium Chloride 20 MEQ TABCR 40 MEQ PO (08:18)
[2023-06-10] MEDS: Docusate Sodium 100 MG CAP PO ×2 (08:18→20:14)
[2023-06-10] MEDS: Multivitamin TAB 1 TAB PO (08:18)
[2023-06-10] MEDS: Folic Acid 1 MG TAB PO (08:19)
[2023-06-10] MEDS: Enoxaparin 40 MG/0.4 ML SYR SC (10:14)
[2023-06-10] MEDS: Pantoprazole 40 MG VIAL IVP (10:14)
[2023-06-10] MEDS: Normal Saline Flush 10 ML SYR IVP ×6 (10:15→21:39)
[2023-06-10] MEDS: LORazepam 0.5 MG TAB PO ×2 (10:15→21:36)
[2023-06-10] MEDS: HYDROmorphone 2 MG/ML SYR 1.5 MG IVP ×4 (11:33→21:37)
--- NOTE | 2023-06-10 12:33 | PDOC.CMPRO ---
Date of service: 06/10/23 Time of Service: 12:33 Care Management Progress Note Progress Note Text Progress Note Text: S/O: Alva was lying in bed when CM met with her. Her s/o, Danis was in the room visiting. Alva stated that she is doing well, and continues to feel better. She stated that she remains on clear liquids, but has been tolerating them well. She reported that she and Danis continue to look for permanent housing, and have spent a lot of time today answering several ads for housing in [facility]. She stated that she is very happy with her care at [facility]. CM asked if she is interested in talking with the football coach, which she declined, as she plans to move out of the area soon, and does not want to build a relationship in this area. She reports that she has a lot of support in [facility]. CM will continue to follow. A: Alva ia a 38 year old female admitted to [facility] on 06/07/23 for acute pancreatitis, ETOH w/d P: Anticipate Alva will return home with no new services. She will be driven home via private vehicle by family vs [facility]. She will follow up with her PCP and discharge plan of care. CM will continue to follow.
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
--- NOTE | 2023-06-10 17:51 | W.PM.PROGNOT ---
Date of Service Date of service: 06/10/23 Time of Service: 17:51 Assessment and Plan Assessment and plan (1) Acute pancreatitis: Status: Acute Assessment and plan: Acute alcoholic pancreatitis. Improving. Continue clear liquid diet. Continue pain management w/ dilaudid+ toradol; continue prn antiemetics. US abdomen with fatty liver. (2) Alcohol withdrawal: Status: Resolved Assessment and plan: I think she has finished withdrawing. With h/o EtOH w/d seizures. S/p phenobarbital load, met the hard stop. Transferred to medical surgical floor on 06/09/23. Supplement thiamine, MVI. B12 and folate are adequate. (3) Metabolic acidosis: Status: Resolved Assessment and plan: Suspect starvation/alcoholic ketoacidosis. Resolved with IV hydration. (4) Hypoxia: Status: Resolved Assessment and plan: Suspect this is due to atelectasis. CXR negative. Encourage IS/acapella. (5) Transaminitis: Status: Acute Assessment and plan: US abdomen w/ fatty liver. Hepatitis panel shows Hep Bs positivity, Core Ab pending. Will follow up. Monitor. (6) Hepatic steatosis: Status: Acute Assessment and plan: Suspect due to EtOH liver disease. As above (7) Alcohol abuse: Status: Chronic Assessment and plan: As above Provide sobriety resources in the community (8) Tobacco abuse: Status: Chronic Assessment and plan: Counseling. Provide nicotine replacement (9) Hypokalemia: Status: Acute Assessment and plan: Replete, recheck in am (10) Hypomagnesemia: Status: Acute Assessment and plan: Replete (11) DVT prophylaxis: Status: Acute Assessment and plan: SC enoxaparin (12) Discharge planning issues: Status: Acute Assessment and plan: Full code Transferred to the medical surgical floor on 06/09/23. Continues to require hospitalization. Subjective Subjective Interval history since last seen: Ms Parsons still reports a lot of epigastric pain. She is also having a lot of diffuse abdominal pain. She is not tremulous today. She is constipated. Denies dizziness, CP, SOB, n/v. Exam Narrative Exam Narrative: General: A very pleasant anxious appearing female who is not at all tremulous, A&Ox3, looks better HEENT: EOMI, MMM Cardiovascular: RRR, no m/r/g Lungs: CTAB Gastrointestinal: soft, tender in epigastrium, mildly distended Extremities: no edema BLEs Objective Last Vital Signs Temp 36.0 C L 06/10/23 07:22 Pulse 84 06/10/23 07:22 Resp 18 06/10/23 07:22 BP 136/95 H 06/10/23 07:22 Pulse Ox 98 06/10/23 07:22 Laboratory Results - last 24 hr 06/10/23 06:09 WBC 3.20 L RBC 3.72 L Hgb 11.6 Hct 35.2 L MCV 95 MCH 31.2 MCHC 33.0 RDW 12.9 Plt Count 129 L MPV 10.5 Immature Gran % 0.3 Neutrophils % 44.0 Lymphocytes % 36.9 Monocytes % 12.5 Eosinophils % 4.4 Basophils % 1.9 Nucleated RBC % 0.0 Absolute Neutrophils 1.41 Absolute Lymphocytes 1.18 L Absolute Monocytes 0.40 Absolute Eosinophils 0.14 Absolute Basophils 0.06 Sodium 139 Potassium 3.1 L D Chloride 103 Carbon Dioxide 27.3 Anion Gap 8.7 BUN 1 L Creatinine 0.5 L Est GFR (CKD-EPI 2020) 123.81 Glucose 95 Calcium 8.4 L Magnesium 2.1 PAWSS Have you Been Recently Intoxicated or Drunk Within the Last 30 days?: No Have you Ever Experienced Previous Episodes of Alcohol Withdrawal?: Yes Have you ever Experienced Withdrawal Seizures?: Yes Have you ever Experienced Delirium Tremens(DT)s?: No Have you ever undergone Alcohol Rehabilitation Treatment (i.e, inpt ot outpatient treatment programs)?: Yes Have you ever Experienced Blackouts?: No Have you ever Combined Alcohol with other Downers within the last 90 days?: No Have you ever Combined Alcohol with any other Substance of Abuse during the last 90 days?: No Positive Blood Alcohol level on Presentation? [PCS.BAL]: No Evidence of Increased Autonomic Activity (i.e. HR>120, tremor, sweating, agitation, nausea)?: Yes Result: 4 Time Spent with Patient Time Spent with Patient: 25-34 minutes Time was spent: preparing to see the patient(eg.review tests), obtaining and/or reviewing separately otained hiistory, ordering medications,tests, procedures, referring, communicating with other health health care marketing specialist, indepentently interpreting results, counseling the patient and care coordination
[2023-06-10 19:47] VITALS: BP 136/89; PULSE 90; RESP 18; TEMP 36.6; O2SAT 95
[2023-06-10] MEDS: Milk of Magnesia 30 ML CUP PO (20:12)
[2023-06-10] MEDS: PARoxetine 20 MG TAB 60 MG PO (20:14)
[2023-06-10] MEDS: Polyethylene Glycol 3350 17 GM PACKET PO (20:15)
[2023-06-11] MEDS: HYDROmorphone 2 MG/ML SYR 1.5 MG IVP ×5 (01:54→13:56)
[2023-06-11] MEDS: Acetaminophen 325 MG TAB PO ×4 (05:17→19:56)
[2023-06-11] MEDS: Normal Saline Flush 10 ML SYR IVP ×5 (05:18→17:12)
[2023-06-11] MEDS: Ketorolac 15 MG/ML VIAL IVP ×3 (06:37→19:55)
[2023-06-11 07:11] LABS: Anion Gap 5.9 mmol/L (3-11); BUN 0 mg/dL (7-18); CO2 29.1 mmol/L (21.0-32.0); CREATININE 0.6 mg/dL (0.55-1.02); Calcium 8.6 mg/dL (8.5-10.1); Chloride 103 mmol/L (98-107); Estimated GFR 118.49 (mL/min/1.73m2); Glucose 100 mg/dL (74-106); Magnesium 2.2 mg/dL (1.8-2.4); Potassium 3.3 mmol/L (3.5-5.1); Sodium 138 mmol/L (136-145)
[2023-06-11 07:14] VITALS: BP 137/94; PULSE 89; RESP 18; TEMP 36.7; O2SAT 97
[2023-06-11] MEDS: Polyethylene Glycol 3350 17 GM PACKET PO (08:01)
[2023-06-11] MEDS: Normal Saline Flush 10 ML SYR IV ×2 (08:01→19:58)
[2023-06-11] MEDS: Docusate Sodium 100 MG CAP PO (08:03)
[2023-06-11] MEDS: busPIRone 5 MG TAB 10 MG PO ×3 (08:03→19:56)
[2023-06-11] MEDS: Magnesium Oxide 400 MG TAB PO ×2 (08:04→19:56)
[2023-06-11] MEDS: Sucralfate 1 GM TAB PO ×4 (08:04→19:56)
[2023-06-11] MEDS: Gabapentin 100 MG CAP PO (08:04)
[2023-06-11] MEDS: Folic Acid 1 MG TAB PO (08:04)
[2023-06-11] MEDS: Multivitamin TAB 1 TAB PO (08:04)
[2023-06-11] MEDS: Thiamine 100 MG TAB PO (08:04)
[2023-06-11] MEDS: Pantoprazole 40 MG VIAL IVP (10:36)
[2023-06-11] MEDS: Potassium Chloride Liquid 20 MEQ PKT PO ×2 (12:19→16:27)
[2023-06-11] MEDS: Refresh PLUS Eye Drops 0.4ml 1 EACH OU (15:05)
[2023-06-11 15:23] VITALS: BP 132/88; PULSE 83; RESP 18; TEMP 36.3; O2SAT 94
--- NOTE | 2023-06-11 15:46 | W.PM.PROGNOT ---
Date of Service Date of service: 06/11/23 Time of Service: 15:47 Assessment and Plan Assessment and plan (1) Acute pancreatitis: Status: Acute Assessment and plan: Acute alcoholic pancreatitis. Improving. Diet advanced to solids this morning. She continues to tolerate her diet we will plan for discharge tomorrow. Will wean back her Dilaudid continue as needed ketorolac. Qualifiers: Pancreatitis type: alcohol induced Acute pancreatitis complication: no infection or necrosis Qualified Code(s): K85.20 - Alcohol induced acute pancreatitis without necrosis or infection (2) Alcohol withdrawal: Status: Resolved Assessment and plan: Status post completion of phenobarbital protocol no signs of withdrawal. CIWA scoring has been discontinued. Supplement thiamine, MVI. B12 and folate are adequate. (3) Metabolic acidosis: Status: Resolved Assessment and plan: Suspect starvation/alcoholic ketoacidosis. Resolved with IV hydration. (4) Hypoxia: Status: Resolved Assessment and plan: Secondary to atelectasis on admission. She has not been hypoxic for the last 3 days. Currently on room air. Encourage use of incentive spirometer. Encourage ambulation out of bed. (5) Transaminitis: Status: Acute Assessment and plan: US abdomen w/ fatty liver. Hepatitis panel shows Hep Bs positivity, Core Ab pending. Will follow up. Needs follow-up liver profile. Suspect acute transaminitis secondary to alcohol however we will follow-up on her otitis profile. (6) Hepatic steatosis: Status: Acute Assessment and plan: Suspect due to EtOH liver disease. As above (7) Alcohol abuse: Status: Chronic Assessment and plan: As above Provide sobriety resources in the community (8) Tobacco abuse: Status: Chronic Assessment and plan: Counseling. Provide nicotine replacement (9) Hypokalemia: Status: Acute Assessment and plan: Replete, recheck in am (10) Hypomagnesemia: Status: Acute Assessment and plan: Replete and monitor (11) DVT prophylaxis: Status: Acute Assessment and plan: SC enoxaparin (12) Discharge planning issues: Status: Acute Assessment and plan: Full code Transferred to the medical surgical floor on 06/09/23. Continues to require hospitalization but anticipate discharge in the near future possibly tomorrow morning Subjective Subjective Interval history since last seen: Patient tolerated advancement in her diet today and put her on regular solid foods. However she is stating that she is having loose bowel movements. This is probably all from her pancreatitis. We will check stool for C. difficile however she is not on antibiotics. I will give her as needed Imodium. Think we need to wean her off her IV Dilaudid. Her abdominal exam was pretty benign she had no guarding or rebound tenderness and she has active bowel sounds. She has been on Miralax twice a day and docusate bid. I will hold the Miralax but continue w/ the docusate. I think if her abdominal pains are controlled and she is tolerating her diet, she could be dc home tomorrow morning. I will get follow up liver profile as she has none repeated since admission when her transaminases were in the low 100's. I will also check her prothrombin time to assess her liver synthetic function. Her potassium is low today and she is getting replacement. Exam Narrative Exam Narrative: Pleasant young white female who is alert and oriented x 3 no acute distress not nauseated not having any emesis. Not complaining of any abdominal pain at present. Lungs are clear Heart is regular rate and rhythm Abdomen is obese, slightly distended but nontender to deep palpation without guarding or rebound tenderness, active bowel sounds throughout Objective Last Vital Signs Temp 36.3 C L 06/11/23 15:23 Pulse 83 06/11/23 15:23 Resp 18 06/11/23 15:23 BP 132/88 06/11/23 15:23 Pulse Ox 94 06/11/23 15:23 Laboratory Results - last 24 hr 06/11/23 06:30 Sodium 138 Potassium 3.3 L Chloride 103 Carbon Dioxide 29.1 Anion Gap 5.9 BUN 0 L Creatinine 0.6 Est GFR (CKD-EPI 2020) 118.49 Glucose 100 Calcium 8.6 Magnesium 2.2 PAWSS Have you Been Recently Intoxicated or Drunk Within the Last 30 days?: No Have you Ever Experienced Previous Episodes of Alcohol Withdrawal?: Yes Have you ever Experienced Withdrawal Seizures?: Yes Have you ever Experienced Delirium Tremens(DT)s?: No Have you ever undergone Alcohol Rehabilitation Treatment (i.e, inpt ot outpatient treatment programs)?: Yes Have you ever Experienced Blackouts?: No Have you ever Combined Alcohol with other Downers within the last 90 days?: No Have you ever Combined Alcohol with any other Substance of Abuse during the last 90 days?: No Positive Blood Alcohol level on Presentation? [PCS.BAL]: No Evidence of Increased Autonomic Activity (i.e. HR>120, tremor, sweating, agitation, nausea)?: Yes Result: 4 Time Spent with Patient Time Spent with Patient: 25-34 minutes Time was spent: preparing to see the patient(eg.review tests), ordering medications,tests, procedures, referring, communicating with other health healthcare architect, indepentently interpreting results, counseling the patient and care coordination
[2023-06-11 16:07] LABS: Lab Add On Test DONE
[2023-06-11 16:14] LABS: Potassium 3.6 mmol/L (3.5-5.1)
[2023-06-11 16:25] LABS: ALT 69 U/L (14-59); AST 64 U/L (15-37); Alkaline Phosphatase 89 U/L (46-116); Bilirubin, Direct 0.2 mg/dL (0.0-0.2); Bilirubin, Total 0.4 mg/dL (0.2-1.0); Total Protein 6.9 g/dL (6.4-8.2)
[2023-06-11] MEDS: methylPREDNISolone SUCC 125 MG VIAL 60 MG IVP (17:13)
[2023-06-11] MEDS: diphenhydrAMINE 50 MG/ML VIAL IVP (17:13)
[2023-06-11] MEDS: Psyllium PKT 1 EACH PO (19:55)
[2023-06-11] MEDS: LORazepam 0.5 MG TAB PO (19:56)
[2023-06-11] MEDS: PARoxetine 20 MG TAB 60 MG PO (19:56)
[2023-06-11 21:00] LABS: C Diff PCR Negative (Negative)
[2023-06-11 23:00] VITALS: BP 137/95; PULSE 83; RESP 18; TEMP 36.6; O2SAT 96
[2023-06-12] MEDS: Acetaminophen 325 MG TAB PO ×3 (00:19→11:06)
[2023-06-12] MEDS: Ketorolac 15 MG/ML VIAL IVP (06:19)
[2023-06-12 07:24] VITALS: BP 153/106; PULSE 81; RESP 18; TEMP 36.5; O2SAT 98
[2023-06-12 07:26] LABS: Prothrombin Time 9.6 sec (9.1-11.1)
[2023-06-12 07:37] LABS: ALT 85 U/L (14-59); AST 107 U/L (15-37); Albumin 2.9 g/dL (3.4-5.0); Alkaline Phosphatase 103 U/L (46-116); Anion Gap 6.3 mmol/L (3-11); BUN 1 mg/dL (7-18); Bilirubin, Total 0.3 mg/dL (0.2-1.0); CO2 30.7 mmol/L (21.0-32.0); CREATININE 0.7 mg/dL (0.55-1.02); Calcium 8.8 mg/dL (8.5-10.1); Chloride 103 mmol/L (98-107); Estimated GFR 114.16 (mL/min/1.73m2); Glucose 104 mg/dL (74-106); Magnesium 2.1 mg/dL (1.8-2.4); Potassium 3.5 mmol/L (3.5-5.1); Sodium 140 mmol/L (136-145)
[2023-06-12 07:42] LABS: Abs Immature Grans 0.02 10^3/uL (0.0-0.06); Absolute Basophil Count 0.03 10^3/uL (0.0-0.2); Absolute Eosinophil Count 0.04 10^3/uL (0.0-0.7); Absolute Lymphocyte Count 1.68 10^3/uL (1.2-3.4); Absolute Monocyte Count 0.81 10^3/uL (0.1-0.8); Absolute Neutrophil Count 3.01 10^3/uL (1.2-6.7); Basophils % 0.5; Eosinophils % 0.7; HCT 36.2 % (36.0-46.0); HGB 12.1 g/dL (11.2-15.7); Immature Grans % 0.4; Lymphocytes % 30.1; MCH 31.6 pg (27.0-33.0); MCHC 33.4 % (32.0-36.0); MCV 95 fL (80-95); MPV 10.6 fL (8.0-11.0); Monocytes % 14.5; Neutrophils % 53.8; Platelet Count 177 10^3/uL (130-400); RBC 3.83 10^6/uL (3.93-5.22); RDW 13.4 % (11.7-14.6); RDW-SD 46.4 fL; WBC 5.59 10^3/uL (4.4-10.8)
[2023-06-12] MEDS: Sucralfate 1 GM TAB PO ×2 (08:02→11:06)
[2023-06-12] MEDS: Gabapentin 100 MG CAP PO (08:02)
[2023-06-12] MEDS: Folic Acid 1 MG TAB PO (08:02)
[2023-06-12] MEDS: Multivitamin TAB 1 TAB PO (08:02)
[2023-06-12] MEDS: Magnesium Oxide 400 MG TAB PO (08:02)
[2023-06-12] MEDS: Omeprazole 20 MG CAPCR 40 MG PO (08:02)
[2023-06-12] MEDS: Thiamine 100 MG TAB PO (08:02)
[2023-06-12] MEDS: busPIRone 5 MG TAB 10 MG PO (08:02)
[2023-06-12] MEDS: Normal Saline Flush 10 ML SYR IV (08:03)
[2023-06-12] MEDS: LORazepam 0.5 MG TAB PO (08:11)
[2023-06-12 09:15] VITALS: BP 138/98; PULSE 92
--- NOTE | 2023-06-12 11:21 | W.PM.DS.N ---
Date of service: 06/12/23 Time of Service: 11:22 DS: Diagnosis Discharge Diagnosis (1) Acute pancreatitis: Status: Acute (2) Alcohol withdrawal: Status: Resolved (3) Metabolic acidosis: Status: Resolved (4) Hypoxia: Status: Resolved (5) Transaminitis: Status: Acute (6) Hepatic steatosis: Status: Acute (7) Alcohol abuse: Status: Chronic (8) Tobacco abuse: Status: Chronic (9) Hypokalemia: Status: Acute (10) Hypomagnesemia: Status: Acute (11) DVT prophylaxis: Status: Acute (12) Discharge planning issues: Status: Acute Discharge Plan Disposition Patient Disposition: Home Condition: Improving Discharge Details Reason For Visit: Acute Pancreatitis,Alcohol Withdrawal Admit Date/Time: 06/07/23 09:06 Admit Provider: Kayla Michel Attending Provider: Kayla Michel Primary Care Provider: Ekaterina Beltran [facility] Course Hospital Course: Ms Todd is a 37 year old female with PMHx of prior episodes of pancreatitis, presumably due to EtOH, alcohol abuse with h/o severe EtOH w/d including an alcohol withdrawal seizure after being discharged from the hospital, on admission her last alcoholic beveragers was 48 hrs ago, also has h/o anxiety d/o, who is currently experiencing homelessness, who presented to [facility] ED on 06/07 with 3 days of RUQ/epigastric abdominal pain accompanied by nausea/vomiting (billious with occasional brown streaks) and some diarrhea. Due to this, the patient was not been able to keep down any food or liquids, including alcohol. She usually drinks 6 - 12 oz 8% beers daily. She is currently residing in the [facility] with her partner. In the ED, her CIWA score was 16. This was treated with IV valium with the score going down to 8. The workup in the ED was c/w acute pancreatitis and severe hepatic steatosis. The patient was admitted to the ICU. Patient was given phenobarb for alcohol withdrawa, she also had transaminitis. Patient was started on dilaudid and toradol for pain with prn antiemetics. Patient improved and was moved to the medical floor on 06/09. Thiamine was supplemented. Multivitamins were started. B12 and folate were adequate. She continued to have epigastric and diffuse abdominal pain. On 12/09 patient developed hives with raised welts on her arm and chest. Unknown source. Patient was given benadryl with total resolve. She did not have any difficulty breathing, no swollen lips, no swollen tongue or any other issues. There was no sign of anaphylaxis. Her diet was advanced and the pain decreased. Today she was tolerating a full diet and did not require opiates for pain. Patient is discharged to home, encouraged not to drink alcohol, and requested to follow up with PCP. Home Meds and New Rx's Prescriptions: Continued lorazepam [Ativan] 1 mg tablet 1 mg PO TID buspirone 10 mg tablet 10 mg PO TID gabapentin 100 mg capsule 100 mg PO DAILY paroxetine HCl [Paxil] 30 mg tablet 60 mg PO HS Discharge Instructions Instructions: Pancreatitis (DC) Additional Instructions: Follow up with PCP. Advance diet as tolerated. Do not drink alcohol. Stand Alone Forms: Nursing Discharge Form Referrals: Ekaterina Beltran [Primary Care Provider] - (Please call Tuesday to make a follow up appointment for 1-2 weeks) Activity:: Activity as Tolerated Equipment/Supplies:: No Equipment Needed Diet:: As Tolerated Discharge Orders Discharge Orders: Discharge Order (Routine); Ordered 06/12/23 Ordered By: Linda Floyd Discharge Data Discharge Date/Time-TO BE ENTERED AT DEPARTURE: 06/12/23 12:07 DS: Summary Time Spent with Patient providing and/or coordinating discharge services: Greater than 30 minutes Status at Discharge Functional status at discharge: independent ambulation Overall status at discharge: patient is back to baseline Mental Status: mental status grossly normal Speech and Movement: speech and movement normal Mood: congruent mood Affect: normal affect Exam Narrative Exam Narrative: General: A very pleasant woman, smiling, alert, conversant HEENT: EOMI, MMM Cardiovascular: RRR, no m/r/g Lungs: CTAB Gastrointestinal: soft, non tender in epigastrium, mildly distended Extremities: no edema BLEs Psych Mental Status: mental status grossly normal Speech and Movement: speech and movement normal Mood: congruent mood Affect: normal affect DS: Data Vitals/I&O Vitals and I&O: Vital Signs Temperature 36.5 C 06/12/23 07:24 Temperature Source Tympanic 06/12/23 07:24 Pulse 92 H 06/12/23 09:15 Pulse Rhythm Regular 06/12/23 09:15 Pulse 95 H 06/09/23 20:00 Respiratory Rate 18 06/12/23 07:24 Respiratory Effort Normal, Non-Labored 06/12/23 09:15 Respiratory Depth Normal 06/12/23 09:15 Respiratory Pattern Normal 06/12/23 09:15 Blood Pressure 138/98 H 06/12/23 09:15 Blood Pressure Mean 95 06/09/23 18:17 Blood Pressure Position Supine 06/09/23 00:19 Pulse Oximetry 98 06/12/23 07:24 Oxygen Delivery Method Room Air 06/12/23 07:24 Oxygen Flow Rate 0 06/12/23 07:24 Pain Level 6 06/12/23 11:06 Comment VS obtained approximately one hour post lorazepam (Ativan) administration. Charge nurse notified. 06/12/23 09:15 Intake & Output 06/11/23 06/11/23 06/12/23 11:59 23:59 11:59 Intake Total 500 / 500 370 / 370 Balance 500 / 500 370 / 370 Weight 83.325 kg Intake: IV Oral 500 / 500 360 / 360 Other: Urine Color Yellow Urine Appearance Clear Clear Urine Odor Normal Comment pt voids independently Per pt. report, void x2 in the toilet. Stool Size Large Stool Characteristics Liquid Brown Green Voiding Methods Toilet Toilet Data Completed and Pending Labs on day of discharge: Labs from last 24 hours 06/12/23 06/12/23 06/11/23 07:35 06:11 20:10 WBC 5.59 Cancelled RBC 3.83 L Cancelled Hgb 12.1 Cancelled Hct 36.2 Cancelled MCV 95 Cancelled MCH 31.6 Cancelled MCHC 33.4 Cancelled RDW 13.4 Cancelled Plt Count 177 Cancelled MPV 10.6 Cancelled Immature Gran % 0.4 Cancelled Neutrophils % 53.8 Cancelled Band Neutrophils % Cancelled Lymphocytes % 30.1 Cancelled Atypical Lymphs % Cancelled Monocytes % 14.5 Cancelled Eosinophils % 0.7 Cancelled Basophils % 0.5 Cancelled Metamyelocytes % Cancelled Myelocytes % Cancelled Promyelocytes % Cancelled Other Cells % Cancelled Nucleated RBC % 0.0 Cancelled Absolute Neutrophils 3.01 Cancelled Absolute Lymphocytes 1.68 Cancelled Absolute Monocytes 0.81 H Cancelled Absolute Eosinophils 0.04 Cancelled Absolute Basophils 0.03 Cancelled RBC Morphology Cancelled Polychromasia Cancelled Hypochromasia Cancelled Poikilocytosis Cancelled Basophilic Stippling Cancelled Anisocytosis Cancelled Microcytosis Cancelled Macrocytosis Cancelled Spherocytes Cancelled Tear Drop Cells Cancelled Ovalocytes Cancelled Stomatocytes Cancelled Mueller-Epworth Bodies Cancelled [place] Cells/Echinocytes Cancelled Acanthocytes (Spur) Cancelled Schistocytes Cancelled PT 9.6 INR 1.0 Sodium 140 Potassium 3.5 Chloride 103 Carbon Dioxide 30.7 Anion Gap 6.3 BUN 1 L Creatinine 0.7 Est GFR (CKD-EPI 2020) 114.16 Glucose 104 Calcium 8.8 Magnesium 2.1 Total Bilirubin 0.3 Conjugated Bilirubin AST 107 H ALT 85 H Alkaline Phosphatase 103 Total Protein 7.0 Albumin 2.9 L Stl C.difficile Tox PCR Negative Add-On Test Request 06/11/23 06/11/23 16:00 15:55 WBC RBC Hgb Hct MCV MCH MCHC RDW Plt Count MPV Immature Gran % Neutrophils % Band Neutrophils % Lymphocytes % Atypical Lymphs % Monocytes % Eosinophils % Basophils % Metamyelocytes % Myelocytes % Promyelocytes % Other Cells % Nucleated RBC % Absolute Neutrophils Absolute Lymphocytes Absolute Monocytes Absolute Eosinophils Absolute Basophils RBC Morphology Polychromasia Hypochromasia Poikilocytosis Basophilic Stippling Anisocytosis Microcytosis Macrocytosis Spherocytes Tear Drop Cells Ovalocytes Stomatocytes Mueller-Epworth Bodies Fat[place] Cells/Echinocytes Acanthocytes (Spur) Schistocytes PT INR Sodium Potassium 3.6 Chloride Carbon Dioxide Anion Gap BUN Creatinine Est GFR (CKD-EPI 2020) Glucose Calcium Magnesium Total Bilirubin 0.4 Conjugated Bilirubin 0.2 AST 64 H ALT 69 H Alkaline Phosphatase 89 Total Protein 6.9 Albumin 3.0 L Stl C.difficile Tox PCR Add-On Test Request DONE PFS All Active Problems (Updated 06/11/23 @ 16:04 by Jhony Weaver MD) Hypomagnesemia (Acute) Discharge planning issues (Acute) DVT prophylaxis (Acute) Hepatic steatosis (Acute) Tobacco abuse (Chronic) Anxiety disorder (Acute) Alcohol abuse (Chronic) Homelessness (Acute) Hypokalemia (Acute) Hyponatremia (Acute) Transaminitis (Acute) Abdominal pain (Acute) Vomiting (Acute) Acute pancreatitis (Acute) Medical History (Updated 12/09/23 @ 16:04 by Jhony Weaver MD) Alcohol withdrawal seizure Surgical History (Updated 06/07/23 @ 14:50 by Kayla Michel MD) History of surgery on arm LUE ORIF Family History (Updated 06/07/23 @ 14:51 by Kayla Michel MD) Mother Breast cancer Maternal Grandfather Colon cancer Other Hypertension Social History Smoking/Tobacco Use Status: Current every day Tobacco Type: e-cigarettes Smoking risk assessment performed?: Yes Alcohol Intake: current Alcohol Intake frequency: 3 or more drinks per day Drug use: Never Substance use type: marijuana Housing: other Do you feel safe at home: Yes Do you feel safe in your relationship?: Yes Time Spent with Patient Time Spent with Patient: 45-69 minutes Time was spent: preparing to see the patient(eg.review tests), ordering medications,tests, procedures, indepentently interpreting results and counseling the patient
[2023-06-12 11:23] VITALS: BP 155/106; PULSE 93; RESP 18; TEMP 36.6; O2SAT 98
--- NOTE | 2023-06-12 12:16 | CMDISCH_ITS ---
Date of service: 06/12/23 Time of Service: 12:16 LACE Index Scoring Tool Questions: Length of Stay (in days): 4 - 6 Was the patient admitted via the E.D.?: Yes E.D. Visits: 0 Answers: Total Score: 7 Risk of Readmission: Low Risk Care Management Discharge Plan Reason for Hospitalization: Acute pancreatitis, alcohol w/d Discharge Plan: Alva will return to the [facility], and follow up with community providers. She will transport via private vehicle with a friend. Patient/Family Education Needs: Review discharge instructions, discuss Ask Me Three.
== END 2023-06-12 12:07 | disposition home or self-care (01) | DRG 439 ==
LOC: ER 07:55 → ICU 10:17 → MS 06-09 21:01
PROVIDERS: Emergency Medicine; Internal Medicine; Admitting Provider Internal Medicine; Emergency Provider Emergency Medicine; Visit Provider Internal Medicine
DX: K85.20 Alcohol induced acute pancreatitis without necrosis or infection (principal); E87.1 Hypo-osmolality and hyponatremia; F10.139 Alcohol abuse with withdrawal, unspecified; E87.20 Acidosis, unspecified; Z59.01 Sheltered homelessness; J98.11 Atelectasis; R74.01 Elevation of levels of liver transaminase levels; E87.6 Hypokalemia; F41.9 Anxiety disorder, unspecified; F17.290 Nicotine dependence, other tobacco product, uncomplicated; K76.0 Fatty (change of) liver, not elsewhere classified; K70.9 Alcoholic liver disease, unspecified; R09.02 Hypoxemia
CPT/HCPCS: 00123; 36415; 80048; 80053; 80076; 80307; 81025; 82805; 83690; 86704; 86706; 86709; 86803; 87340; 87493; 96365; 96366; 96367; 96375; 96376; 99285; J1650; 71045; 74177; 76700; 80184; 81003; 81015; 82607; 82746; 83735; 84132; 85025; 85610; 86140; 99223; 99232; 99239; 99291; J1170; J1200; J1790; J1885; J2405; J2560; J2930; J3360; J3475; J3490